=== PATIENT | male | born 1990 | race Caucasian/White ===

== ENCOUNTER 2017-02-09 12:59 | Emergency (ER) | payer OTHER ==
[~2017-02-09] VITALS: Wt 85.3 kg
[~2017-02-09 12:59] MED LIST: AUGMENTIN 875875 MG PO; HYDROCODONE BIT1 T11 PO; IBU800 MG PO; NKHM; ZOFRAN ODT8 MG PO
[2017-02-09 13:15] VITALS: BP 144/92
[2017-02-09] MEDS ORDERED: ZOFRAN ODT4 MG SL (13:27)
[2017-02-09] MEDS ORDERED: PEPCID20 MG PO (13:27)
== END 2017-02-09 14:56 | disposition home or self-care (01) ==
LOC: ED 12:59
DX: K29.70 Gastritis, unspecified, without bleeding (principal); F17.200 Nicotine dependence, unspecified, uncomplicated

== ENCOUNTER 2018-03-05 22:45 | Emergency (ER) | payer OTHER ==
[~2018-03-05] VITALS: Ht 170.1 cm; Wt 80.7 kg
[~2018-03-05 22:45] MED LIST changes: +PEPCID20 MG PO; +ZOFRAN ODT4 MG SL
[2018-03-05 23:06] LABS: BASO # 0.1 10*3/uL (0.0-0.1); BASO % 0.4 % (0.0-1.0); EOS # 0.4 10*3/uL (0.0-0.4); EOS % 3.4 % (1.0-4.0); HEMATOCRIT 50.9 % (42.0-52.0); HEMOGLOBIN 16.9 g/dl (14.0-18.0); LYMPH % 26.5 % (27.0-41.0); MEAN CELL VOLUME 95.3 fl (80.0-94.0); MEAN CORPUSCULAR HGB 31.6 pg (27.0-31.0); MEAN CORPUSCULAR HGB CONC 33.2 g/dl (33.0-37.0); MEAN PLATELET VOLUME 10.2 fl (9.6-12.3); MONO # 0.7 10*3/uL (0.1-1.0); MONO % 5.9 % (3.0-9.0); NEUT # 7.1 10*3/uL (2.3-7.9); NEUT % 63.4 % (47.0-73.0); PLATELET COUNT AUTOMATED 210 10*3/uL (130-400); RED BLOOD COUNT 5.34 10*6/uL (4.50-5.90); RED CELL DISTRI WIDTH 13.5 % (0-14.5); WHITE BLOOD COUNT 11.2 10*3/uL (4.8-10.8)
[2018-03-05 23:22] LABS: ALBUMIN 4.8 gm/dl (3.1-4.5); ALKALINE PHOSPHATASE 93 U/L (45-117); BUN 19 mg/dl (7-24); CHLORIDE 105 mmol/L (98-107); CREATININE 1.15 mg/dL (0.70-1.30); SGOT/AST 14 IU/L (3-35); SGPT/ALT 26 U/L (12-78); SODIUM 141 mmol/L (136-145); TOTAL PROTEIN 7.9 gm/dL (6.4-8.2)
[2018-03-05 23:23] LABS: ACETAMINOPHEN (TYLENOL) < 2.0 ug/ml (10-30); ETHYL ALCOHOL < 3.0 mg/dl (<3)
[2018-03-05 23:51] LABS: BILIRUBIN NEGATIVE (NEGATIVE); BLOOD NEGATIVE (NEGATIVE); CLARITY CLEAR (CLEAR); COLOR YELLOW (YELLOW); GLUCOSE NEGATIVE (NEGATIVE); KETONE NEGATIVE (NEGATIVE); LEUKO ESTERASE NEGATIVE (NEGATIVE); NITRITE NEGATIVE (NEGATIVE); UROBILINOGEN 0.2 E.U./dl (0.2-1.0)
[2018-03-06 00:02] LABS: EPITHELIAL CELLS 0-2; WBC 0-2 wbc/hpf (0-5)
[2018-03-06 00:03] LABS: URINE AMPHETAMINES < 1000 (1000ng/ml); URINE BARBITURATES < 200 (200ng/ml); URINE BENZODIAZEPINES < 200 (200ng/ml); URINE CANNABINOIDS (THC) > 50 (50ng/ml); URINE COCAINE < 300 (300ng/ml); URINE METHADONE < 300 (300ng/ml); URINE OPIATES < 300 (300ng/ml)
[2018-03-06 00:04] LABS: URINE PHENCYCLIDINE < 25 (25ng/ml)
[2018-03-06 10:00] VITALS: BP 129/73
[2018-03-06] MEDS ORDERED: VISTARIL25 MG PO (10:37)
== END 2018-03-06 11:35 | disposition home or self-care (01) ==
LOC: ED 22:45
PROVIDERS: Emergency Medicine Emergency Medical Services
DX: F43.20 Adjustment disorder, unspecified (principal); F32.9 Major depressive disorder, single episode, unspecified; F41.9 Anxiety disorder, unspecified; Z79.899 Other long term (current) drug therapy

== ENCOUNTER 2019-03-22 10:25 | Emergency (ER) | payer SELFPAY ==
[~2019-03-22] VITALS: Ht 170.1 cm; Wt 81.6 kg
[2019-03-22 10:25] VITALS: BP 150/93
[~2019-03-22 10:25] MED LIST changes: +VISTARIL25 MG PO
[2019-03-22 10:53] LABS: BILIRUBIN NEGATIVE (NEGATIVE); BLOOD 3+ (NEGATIVE); CLARITY SL CLOUDY (CLEAR); COLOR YELLOW (YELLOW); GLUCOSE NEGATIVE (NEGATIVE); KETONE NEGATIVE (NEGATIVE); LEUKO ESTERASE NEGATIVE (NEGATIVE); NITRITE NEGATIVE (NEGATIVE); PH 5.5 (5.0-9.0); SPECIFIC GRAVITY 1.025 (1.005-1.030); UROBILINOGEN 0.2 E.U./dl (0.2-1.0)
[2019-03-22 11:01] LABS: BACTERIA TRACE; MUCOUS 1+; RBC 51-100 rbc/hpf (0-2); WBC 0-2 wbc/hpf (0-5)
[2019-03-22 11:04] LABS: BASO # 0.1 10*3/uL (0.0-0.1); BASO % 0.5 % (0.0-1.0); EOS # 0.3 10*3/uL (0.0-0.4); EOS % 3.5 % (1.0-4.0); HEMATOCRIT 46.9 % (42.0-52.0); HEMOGLOBIN 15.7 g/dl (14.0-18.0); MEAN CELL VOLUME 94.2 fl (80.0-94.0); MEAN CORPUSCULAR HGB 31.5 pg (27.0-31.0); MEAN CORPUSCULAR HGB CONC 33.5 g/dl (33.0-37.0); MEAN PLATELET VOLUME 10.1 fl (9.6-12.3); MONO # 0.6 10*3/uL (0.1-1.0); MONO % 6.2 % (3.0-9.0); NEUT # 6.5 10*3/uL (2.3-7.9); NEUT % 68.6 % (47.0-73.0); PLATELET COUNT AUTOMATED 175 10*3/uL (130-400); RED BLOOD COUNT 4.98 10*6/uL (4.50-5.90); WHITE BLOOD COUNT 9.4 10*3/uL (4.8-10.8)
[2019-03-22 11:24] LABS: ALBUMIN 4.3 gm/dl (3.1-4.5); ALKALINE PHOSPHATASE 88 U/L (45-117); BUN 22 mg/dl (7-24); CHLORIDE 109 mmol/L (98-107); CREATININE 1.33 mg/dL (0.70-1.30); SGOT/AST 16 IU/L (3-35); SGPT/ALT 31 U/L (12-78); SODIUM 142 mmol/L (136-145); TOTAL PROTEIN 7.2 gm/dL (6.4-8.2)
[2019-03-22] MEDS ORDERED: FLOMAX0.4 MG PO (12:00)
== END 2019-03-22 12:11 | disposition home or self-care (01) ==
LOC: ED 10:25
PROVIDERS: Internal Medicine
DX: N20.0 Calculus of kidney (principal); F17.200 Nicotine dependence, unspecified, uncomplicated

== ENCOUNTER 2019-11-02 02:59 | Emergency (ER) | payer SELFPAY ==
[~2019-11-02] VITALS: Ht 170.2 cm; Wt 83.9 kg
[~2019-11-02 02:59] MED LIST changes: +FLOMAX0.4 MG PO
[2019-11-02 03:05] VITALS: BP 142/92
[2019-11-02 03:42] LABS: BASO # 0.1 10*3/uL (0.0-0.1); BASO % 0.4 % (0.0-1.0); EOS # 0.4 10*3/uL (0.0-0.4); EOS % 3.3 % (1.0-4.0); HEMATOCRIT 47.2 % (42.0-52.0); HEMOGLOBIN 15.9 g/dl (14.0-18.0); LYMPH # 3.6 10*3/uL (1.3-4.4); LYMPH % 30.1 % (27.0-41.0); MEAN CELL VOLUME 93.5 fl (80.0-94.0); MEAN CORPUSCULAR HGB 31.5 pg (27.0-31.0); MEAN CORPUSCULAR HGB CONC 33.7 g/dl (33.0-37.0); MONO # 0.8 10*3/uL (0.1-1.0); MONO % 6.5 % (3.0-9.0); NEUT # 7.1 10*3/uL (2.3-7.9); NEUT % 59.3 % (47.0-73.0); PLATELET COUNT AUTOMATED 221 10*3/uL (130-400); RED BLOOD COUNT 5.05 10*6/uL (4.50-5.90); WHITE BLOOD COUNT 11.9 10*3/uL (4.8-10.8)
[2019-11-02 03:58] LABS: ALBUMIN 4.1 gm/dl (3.1-4.5); ALKALINE PHOSPHATASE 89 U/L (45-117); BUN 17 mg/dl (7-24); CHLORIDE 107 mmol/L (98-107); CREATININE 1.55 mg/dL (0.70-1.30); POTASSIUM 3.3 mmol/L (3.5-5.1); SGOT/AST 19 IU/L (3-35); SGPT/ALT 44 U/L (12-78); SODIUM 140 mmol/L (136-145); TOTAL PROTEIN 7.3 gm/dL (6.4-8.2)
[2019-11-02 05:03] LABS: BILIRUBIN NEGATIVE (NEGATIVE); BLOOD 3+ (NEGATIVE); CLARITY CLEAR (CLEAR); COLOR YELLOW (YELLOW); GLUCOSE NEGATIVE (NEGATIVE); KETONE NEGATIVE (NEGATIVE); LEUKO ESTERASE TRACE (NEGATIVE); NITRITE NEGATIVE (NEGATIVE); PH 7.5 (5.0-9.0); UROBILINOGEN 0.2 E.U./dl (0.2-1.0)
[2019-11-02 05:15] LABS: EPITHELIAL CELLS 0-2; RBC TNTC rbc/hpf (0-2)
[2019-11-02 05:16] LABS: BACTERIA 1+
== END 2019-11-02 05:42 | disposition home or self-care (01) ==
LOC: ED 02:59
PROVIDERS: Emergency Medicine
DX: N20.0 Calculus of kidney (principal); Z79.899 Other long term (current) drug therapy

== ENCOUNTER 2019-11-14 14:14 | Emergency (ER) | payer SELFPAY ==
[~2019-11-14] VITALS: Ht 170.1 cm; Wt 86.2 kg
[2019-11-14 14:25] VITALS: BP 140/84
[2019-11-14 14:53] LABS: BASO # 0.1 10*3/uL (0.0-0.1); BASO % 0.4 % (0.0-1.0); EOS # 0.3 10*3/uL (0.0-0.4); EOS % 2.4 % (1.0-4.0); HEMATOCRIT 50.6 % (42.0-52.0); HEMOGLOBIN 17.1 g/dl (14.0-18.0); LYMPH # 0.9 10*3/uL (1.3-4.4); MEAN CELL VOLUME 93.5 fl (80.0-94.0); MEAN CORPUSCULAR HGB 31.6 pg (27.0-31.0); MEAN CORPUSCULAR HGB CONC 33.8 g/dl (33.0-37.0); MEAN PLATELET VOLUME 9.9 fl (9.6-12.3); MONO # 0.8 10*3/uL (0.1-1.0); MONO % 6.5 % (3.0-9.0); NEUT # 10.5 10*3/uL (2.3-7.9); NEUT % 83.4 % (47.0-73.0); PLATELET COUNT AUTOMATED 191 10*3/uL (130-400); RED BLOOD COUNT 5.41 10*6/uL (4.50-5.90); WHITE BLOOD COUNT 12.6 10*3/uL (4.8-10.8)
[2019-11-14 15:07] LABS: ALBUMIN 4.3 gm/dl (3.1-4.5); ALKALINE PHOSPHATASE 96 U/L (45-117); BUN 23 mg/dl (7-24); CHLORIDE 110 mmol/L (98-107); CREATININE 1.53 mg/dL (0.70-1.30); POTASSIUM 4.1 mmol/L (3.5-5.1); SGOT/AST 16 IU/L (3-35); SGPT/ALT 32 U/L (12-78); SODIUM 142 mmol/L (136-145); TOTAL PROTEIN 7.4 gm/dL (6.4-8.2)
[2019-11-14 15:55] LABS: BILIRUBIN NEGATIVE (NEGATIVE); BLOOD 3+ (NEGATIVE); CLARITY CLEAR (CLEAR); COLOR YELLOW (YELLOW); GLUCOSE NEGATIVE (NEGATIVE); KETONE NEGATIVE (NEGATIVE); LEUKO ESTERASE NEGATIVE (NEGATIVE); NITRITE NEGATIVE (NEGATIVE); UROBILINOGEN 0.2 E.U./dl (0.2-1.0)
[2019-11-14 15:57] LABS: RBC 51-100 rbc/hpf (0-2)
[2019-11-14 15:58] LABS: MUCOUS 2+
== END 2019-11-14 17:26 | disposition home or self-care (01) ==
LOC: ED 14:14
PROVIDERS: Nurse Practitioner Family
DX: K40.90 Unilateral inguinal hernia, without obstruction or gangrene, not specified as recurrent (principal); R31.9 Hematuria, unspecified; F17.200 Nicotine dependence, unspecified, uncomplicated; Z79.899 Other long term (current) drug therapy

== ENCOUNTER 2021-07-12 14:03 | Inpatient (IN) | payer SELFPAY ==
[~2021-07-12] VITALS: Ht 170.1 cm; Wt 92.1 kg
[2021-07-12 14:13] VITALS: BP 140/98
[2021-07-12 15:52] LABS: BASO % 0.4 % (0.0-1.0); EOS # 0.1 10*3/uL (0.0-0.4); EOS % 1.4 % (1.0-4.0); LYMPH # 1.5 10*3/uL (1.3-4.4); LYMPH % 16.8 % (27.0-41.0); MEAN CELL VOLUME 91.1 fl (80.0-94.0); MEAN PLATELET VOLUME 10.3 fl (9.6-12.3); MONO # 0.6 10*3/uL (0.1-1.0); MONO % 6.2 % (3.0-9.0); NEUT # 6.8 10*3/uL (2.3-7.9); NEUT % 74.8 % (47.0-73.0); PLATELET COUNT AUTOMATED 225 10*3/uL (130-400); RED BLOOD COUNT 5.16 10*6/uL (4.50-5.90); RED CELL DISTRI WIDTH 12.3 % (0-14.5); WHITE BLOOD COUNT 9.1 10*3/uL (4.8-10.8)
[2021-07-12 15:59] LABS: BILIRUBIN Negative (Negative); BLOOD Negative (Negative); CLARITY Clear (Clear); COLOR Yellow (Yellow); GLUCOSE Negative (Negative); KETONE Trace (Negative); LEUKO ESTERASE Negative (Negative); NITRITE Negative (Negative); SPECIFIC GRAVITY >= 1.030 (1.001-1.030)
[2021-07-12 16:03] LABS: ACT PARTIAL THROMBO TIME 26.2 SECONDS (20.0-32.1)
[2021-07-12 16:10] LABS: BACTERIA TRACE; RBC 0-2 rbc/hpf (0-2); WBC 0-2 wbc/hpf (0-5)
[2021-07-12 16:11] LABS: CALCIUM OXALATE CRYSTALS Trace; MUCOUS 2+
[2021-07-12 16:12] LABS: ALBUMIN 4.4 gm/dl (3.1-4.5); ALKALINE PHOSPHATASE 83 U/L (45-117); BUN 23 mg/dl (7-24); CHLORIDE 111 mmol/L (98-107); CREATININE 1.24 mg/dL (0.70-1.30); LIPASE 40 U/L (73-393); POTASSIUM 3.6 mmol/L (3.5-5.1); SGOT/AST 17 IU/L (3-35); SGPT/ALT 43 U/L (12-78); SODIUM 142 mmol/L (136-145); TOTAL PROTEIN 8.2 gm/dL (6.4-8.2)
[2021-07-12 16:20] LABS: TROPONIN I < 0.015 ng/ml (<0.045)
[2021-07-12 18:58] VITALS: BP 127/69
[2021-07-12] MEDS ORDERED: OMEPRAZOLE10 MG PO (20:57)
[2021-07-12 22:44] VITALS: BP 144/82
[2021-07-13 05:53] LABS: BUN 21 mg/dl (7-24); CHLORIDE 111 mmol/L (98-107); CREATININE 1.24 mg/dL (0.70-1.30); SODIUM 143 mmol/L (136-145)
[2021-07-13 06:59] LABS: BASO % 0.6 % (0.0-1.0); EOS # 0.2 10*3/uL (0.0-0.4); EOS % 3.4 % (1.0-4.0); HEMATOCRIT 43.4 % (42.0-52.0); LYMPH # 2.2 10*3/uL (1.3-4.4); LYMPH % 31.6 % (27.0-41.0); MEAN CORPUSCULAR HGB 31.4 pg (27.0-31.0); MEAN CORPUSCULAR HGB CONC 32.9 g/dl (33.0-37.0); MEAN PLATELET VOLUME 10.3 fl (9.6-12.3); MONO # 0.7 10*3/uL (0.1-1.0); MONO % 10.2 % (3.0-9.0); NEUT # 3.7 10*3/uL (2.3-7.9); NEUT % 54.1 % (47.0-73.0); PLATELET COUNT AUTOMATED 199 10*3/uL (130-400); RED BLOOD COUNT 4.55 10*6/uL (4.50-5.90); RED CELL DISTRI WIDTH 12.7 % (0-14.5); WHITE BLOOD COUNT 6.8 10*3/uL (4.8-10.8)
[2021-07-13 07:17] LABS: MEAN CELL VOLUME 95.4 fl (80.0-94.0)
[2021-07-13 07:45] VITALS: BP 125/70
[2021-07-13] MEDS ORDERED: METRONIDAZOLE500 M1 PO (14:27)
[2021-07-13] MEDS ORDERED: CIPRO500 MG PO (14:27)
== END 2021-07-13 14:44 | disposition home or self-care (01) | DRG 394 ==
LOC: ED 14:03 → EDHOLD 20:14
PROVIDERS: Physician Assistant; Student in an Organized Health Care Education/Training Program; ADMIT Internal Medicine; ATTEND Internal Medicine
DX: K35.80 Unspecified acute appendicitis (principal); K92.1 Melena; K40.90 Unilateral inguinal hernia, without obstruction or gangrene, not specified as recurrent; I88.0 Nonspecific mesenteric lymphadenitis; K42.9 Umbilical hernia without obstruction or gangrene; F43.20 Adjustment disorder, unspecified; R16.1 Splenomegaly, not elsewhere classified; R79.82 Elevated C-reactive protein (CRP); F41.9 Anxiety disorder, unspecified; Z87.442 Personal history of urinary calculi; Z79.899 Other long term (current) drug therapy

== ENCOUNTER → 2024-03-12 | Day surgery (SDC) | payer BC ==
[~2024-03-12] VITALS: Ht 172.7 cm; Wt 81.6 kg
[~2024-03-12] MED LIST changes: +BUPIVACAINE 0.5% 30 ML IV ONE; +CIPRO500 MG PO; +COLACE100 MG PO; +DEXMEDETOMIDINE HCL 200 MCG/2 ML VIAL ONE; +Dexamethasone Sodium Phospha 20 MG/5 ML VIAL IV ONE; +Lactated Ringer's Solution 1,000 ML IV ONE; +Lidocaine Hydrochloride 2% 10 ML AMP IM ONE; +METRONIDAZOLE500 M1 PO; +Midazolam Hydrochloride 2 MG/2 ML VIAL IV ONE; +OMEPRAZOLE10 MG PO; +Ondansetron Hydrochloride 4 MG/2 ML VIAL IV ONE; +PERCOCET 5-3251 EACH PO; +PROPOFOL 200 MG/20 ML VIAL IV ONE; +SEVOFLURANE 250 ML BOT INH ONE; +SUGAMMADEX SODIUM 200 MG/2 ML VIAL IV ONE; +ceFAZolin sodium/sodium chlor 20 ML IV ONE; +fentaNYL CITRATE 100 MCG/2 ML VIAL IV ONE
[2024-03-12 09:49] VITALS: BP 112/71
[2024-03-12 12:30] VITALS: BP 129/84
[2024-03-12 12:43] VITALS: BP 116/80
[2024-03-12 12:58] VITALS: BP 118/70
[2024-03-12 13:14] VITALS: BP 101/67
[2024-03-12 13:31] VITALS: BP 108/68
== END | disposition home or self-care (01) ==
LOC: SDC 03-09 13:15
PROVIDERS: ATTEND Surgery
DX: K40.90 Unilateral inguinal hernia, without obstruction or gangrene, not specified as recurrent (principal); Z87.891 Personal history of nicotine dependence

== ENCOUNTER 2025-06-16 00:06 | Emergency (ER) | payer SELFPAY ==
[~2025-06-16] VITALS: Ht 167.6 cm; Wt 72.8 kg
[~2025-06-16 00:06] MED LIST changes: -BUPIVACAINE 0.5% 30 ML IV ONE; -DEXMEDETOMIDINE HCL 200 MCG/2 ML VIAL ONE; -Dexamethasone Sodium Phospha 20 MG/5 ML VIAL IV ONE; -Lactated Ringer's Solution 1,000 ML IV ONE; -Lidocaine Hydrochloride 2% 10 ML AMP IM ONE; -Midazolam Hydrochloride 2 MG/2 ML VIAL IV ONE; -Ondansetron Hydrochloride 4 MG/2 ML VIAL IV ONE; -PROPOFOL 200 MG/20 ML VIAL IV ONE; -SEVOFLURANE 250 ML BOT INH ONE; -SUGAMMADEX SODIUM 200 MG/2 ML VIAL IV ONE; -ceFAZolin sodium/sodium chlor 20 ML IV ONE; -fentaNYL CITRATE 100 MCG/2 ML VIAL IV ONE
[2025-06-16 00:13] VITALS: BP 159/92
[2025-06-16] MEDS ORDERED: LORazepam 1 MG TAB PO ONE (00:25)
== END 2025-06-16 00:47 | disposition home or self-care (01) ==
LOC: ED 00:06
DX: R07.89 Other chest pain (principal); Z87.891 Personal history of nicotine dependence